=== PATIENT | female | born 1985 | race Caucasian/White ===

== ENCOUNTER → 2019-10-30 11:30 | Outpatient (BNVA) | payer OTHER, SELFPAY | PROVIDERS: Family Provider Internal Medicine; PCP Family Medicine; Visit Provider Urology | DX: E11.9 Type 2 diabetes mellitus without complications (principal) | CPT/HCPCS: 83036 ==

== ENCOUNTER → 2020-01-18 09:57 | Outpatient (BNVA) | payer OTHER, SELFPAY | PROVIDERS: Family Provider Internal Medicine; PCP Family Medicine Adult Medicine; Visit Provider Internal Medicine | DX: M54.6 Pain in thoracic spine (principal) | CPT/HCPCS: 72070 ==

== ENCOUNTER 2020-02-01 06:00 | Outpatient (RCR) | payer OTHER, SELFPAY | END 2020-03-01 23:59 | disposition home or self-care (01) | LOC: SPT 06:00 | PROVIDERS: PCP Family Medicine Adult Medicine; Referring Provider Internal Medicine; Visit Provider Internal Medicine | DX: M54.6 Pain in thoracic spine (principal) | CPT/HCPCS: 97110; 97161 ==

== ENCOUNTER → 2020-02-18 10:46 | Outpatient (BNVA) | payer OTHER, SELFPAY | PROVIDERS: PCP Family Medicine Adult Medicine; Referring Provider Family Medicine Adult Medicine; Visit Provider Internal Medicine | DX: E03.9 Hypothyroidism, unspecified (principal); E10.9 Type 1 diabetes mellitus without complications; Z96.41 Presence of insulin pump (external) (internal) | CPT/HCPCS: 99204 ==

== ENCOUNTER → 2020-04-17 08:12 | Outpatient (BNVA) | payer OTHER, SELFPAY | PROVIDERS: PCP Family Medicine Adult Medicine; Visit Provider Nurse Practitioner Family | DX: E10.9 Type 1 diabetes mellitus without complications (principal); E03.9 Hypothyroidism, unspecified | CPT/HCPCS: 80053; 83036; 84439 ==

== ENCOUNTER → 2020-04-19 11:30 | Outpatient (BNVA) | payer OTHER, SELFPAY | PROVIDERS: PCP Family Medicine Adult Medicine; Visit Provider Family Medicine | DX: U07.1 COVID-19 (principal) | CPT/HCPCS: 87635 ==

== ENCOUNTER → 2020-05-08 10:35 | Outpatient (BNVA) | payer OTHER, SELFPAY | PROVIDERS: PCP Family Medicine Adult Medicine; Visit Provider Nurse Practitioner Women's Health | DX: Z12.4 Encounter for screening for malignant neoplasm of cervix (principal); N91.5 Oligomenorrhea, unspecified | CPT/HCPCS: 88175 ==

== ENCOUNTER → 2020-07-04 10:14 | Outpatient (BNVA) | payer OTHER, SELFPAY | PROVIDERS: PCP Family Medicine Adult Medicine; Visit Provider Internal Medicine | DX: E03.9 Hypothyroidism, unspecified (principal); E10.9 Type 1 diabetes mellitus without complications; Z79.4 Long term (current) use of insulin; Z96.41 Presence of insulin pump (external) (internal) | CPT/HCPCS: 95251; 99214 ==

== ENCOUNTER 2020-07-09 12:51 | Emergency (ER) | payer OTHER, SELFPAY ==
[2020-07-09 12:57] VITALS: BP 126/97; PULSE 95; RESP 16; TEMP 36.4; O2SAT 99; BMI 22.1
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
[2020-07-09 14:18] LABS: HIV 1 & 2 Antibody Non-Reactive (Non-Reactiv); HIV 1 & 2 Antigen Non-Reactive (Non-Reactiv)
[2020-07-09 14:45] LABS: Hepatitis A Antibody IgM Non-Reactive (Nonreactive); Hepatitis B Core IgM Non-Reactive (Nonreactive); Hepatitis B Surface Antigen Non-Reactive (Nonreactive); Hepatitis C Virus Antibody Non-Reactive (Nonreactive)
== END 2020-07-09 13:34 | disposition home or self-care (01) ==
PROVIDERS: Emergency Provider Family Medicine; PCP Family Medicine Adult Medicine
DX: T14.8XXA Other injury of unspecified body region, initial encounter (principal); W46.0XXA Contact with hypodermic needle, initial encounter; Y99.0 Civilian activity done for income or pay; Z79.4 Long term (current) use of insulin; E10.9 Type 1 diabetes mellitus without complications; Z87.891 Personal history of nicotine dependence
CPT/HCPCS: 36415; 80074; 87806; 99282

== ENCOUNTER 2020-07-09 13:44 | Outpatient (CLI) | payer OTHER, SELFPAY ==
[2020-07-09 14:48] LABS: Estmated Average Glucose 246; Hemoglobin A1C 10.2 % (4.0-6.0)
== END 2020-07-09 13:45 | disposition home or self-care (01) ==
PROVIDERS: PCP Family Medicine Adult Medicine; Visit Provider Internal Medicine
DX: E10.9 Type 1 diabetes mellitus without complications (principal)
CPT/HCPCS: 83036

== ENCOUNTER 2020-08-29 10:23 | Emergency (ER) | payer OTHER, SELFPAY ==
[2020-08-29 10:32] VITALS: BP 146/82; PULSE 108; RESP 18; TEMP 36.9; O2SAT 99; BMI 22.1
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
[2020-08-29] MEDS: HYDROcodone-acetaminophen 5-325 mg Tablet 1 TAB PO (11:19)
[2020-08-29 11:56] VITALS: BP 134/65; PULSE 95; RESP 16; O2SAT 98
== END 2020-08-29 11:57 | disposition home or self-care (01) ==
PROVIDERS: Emergency Provider Family Medicine; PCP Family Medicine Adult Medicine
DX: M79.641 Pain in right hand (principal); S20.211A Contusion of right front wall of thorax, initial encounter; Z79.4 Long term (current) use of insulin; E10.9 Type 1 diabetes mellitus without complications; Y04.2XXA Assault by strike against or bumped into by another person, initial encounter; Y92.239 Unspecified place in hospital as the place of occurrence of the external cause; Y99.0 Civilian activity done for income or pay
CPT/HCPCS: 71100; 73130; 99283

== ENCOUNTER → 2021-05-12 12:36 | Outpatient (BNVA) | payer OTHER, SELFPAY | PROVIDERS: PCP Nurse Practitioner Family; Referring Provider Dermatology; Visit Provider Surgery | DX: Z11.52 Encounter for screening for COVID-19 (principal); K40.90 Unilateral inguinal hernia, without obstruction or gangrene, not specified as recurrent | CPT/HCPCS: 87635 ==

== ENCOUNTER 2021-05-14 08:55 | Day surgery (SDC) | payer OTHER, SELFPAY ==
[2021-05-14] VITALS (19 sets, daily range): BP systolic 93–117; BP diastolic 52–81; PULSE 82–108; RESP 7–19; TEMP 36.1–36.8; O2SAT 92–100; BMI 24.0
--- NOTE | 2021-05-14 08:10 | W.PM.OPSUD ---
Surgery/Procedure H&P Update DATE OF PROCEDURE: May 14, 2021 DATE H&P PERFORMED: 05/12/21 H&P UPDATE INFORMATION: I have reviewed H&P completed within last 30 days, I have examined patient prior to procedure and No changes to prior documentation PLANNED PROCEDURE: Operation Date: 05/14/21 10:00 Proposed Procedures p Laparoscopic poss Open Inguinal Hernia Repair [id number] K40.90(Not Applicable) - Thom Saha MD
[2021-05-14 09:58] LABS: OR HCG Qualitative Urine Negative (Negative)
[2021-05-14] MEDS: sodium chloride 0.9% 1,000 ML 30 ML IV (10:00)
--- NOTE | 2021-05-14 10:26 | ANES.PREANE2 ---
Pre-Anesthetic Assessment Pre-Anesthetic Assessment: Height/Weight: Height 1.6 m Weight 61.689 kg Temp Pulse Resp BP Pulse Ox 97.3 F L 97 16 117/81 98 05/14/21 09:25 05/14/21 09:25 05/14/21 09:25 05/14/21 09:25 05/14/21 09:25 Preop Diagnosis: right inguinal hernia Proposed Procedure: Operation Date: 05/14/21 10:00 Proposed Procedures p Laparoscopic poss Open Inguinal Hernia Repair [id number] K40.90(Not Applicable) - Thom Saha MD Familial anesthetic complications: None Was Beta Сергей taken within 24 hours: N/A Was Clonidine taken within 24 hours: N/A Last intake: Intake Last Liquid Date 05/13/21 Last Liquid Time 21:00 Last Solid Date 05/13/21 Last Solid Time 20:00 Social: Social History: No alcohol and No tobacco Exam: Pre-Anes Outpt Exam: alert, oriented x 3, clear to auscultation bilaterally and regular rate & rhythm Airway: Submandibular: WNL Cervical ROM: WNL MP: 1 Dentition: Full History/ROS: No significant complaints Pulmonary: Pulmonary: None reported CV/HEM: CV/HEM: None reported : : None reported Hepatic: Hepatic: None reported GI: Comments: Inguinal hernia repair Metabolic: Metabolic: DM (Well controlled w/ insulin pump) and Thyroid (Hypothyroid) Musc/skel: Musc/skel: None reported Neuropsych: Neuropsych: Anxiety Anesthetic Plan: ASA status: 2 Anesthesia: Anesthesia Evaluation and General Risk of > 500 ml blood loss (7ml/kg in children): No Other Pertinent Information: Plan to use patient's continuous glucose monitor for intra op monitoring of BG and administer insulin as needed. Medications/Allergies Current Medications: Current Medications Generic Name Dose Route Start Last Admin Trade Name Freq PRN Reason Stop Dose Admin Sodium Chloride 1,000 mls @ 30 ml s/hr 05/14/21 09:15 05/14/21 10:00 Sodium Chloride 0.9% IV 05/15/21 09:14 30 mls/hr .Q24H ANA Administration PFSH Anesthesia PFSH: Medical History Angio-edema JOSE (generalized anxiety disorder) Hypothyroidism, unspecified Recurrent herpes labialis Type 1 diabetes mellitus without complications Surgical History H/O wisdom tooth extraction History of tonsillectomy Family History Denies family history of Colon cancer Ovarian cancer Diabetes Heart disease Hypercholesteremia Breast cancer Hypertension Uterine cancer Thyroid disease Stroke Social History Smoking and tobacco status: never smoked Additional social history: - Tobacco use: Former quit in 2011 Alcohol use: socially-- once per week Drug use: denies Female Reproductive History: Date of last menstrual period: 05/04/21 Data Anesthesia Other Labs: Laboratory Results - last 48 hr 05/14/21 09:57 Urine HCG, Qual Negative Cardiac Studies: No Data to Display
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
[2021-05-14] MEDS: HYDROmorphone 1 mg/mL INJ 1 mL 0.5 MG IVP ×2 (12:21→12:39)
[2021-05-14] MEDS: sodium chloride 0.9% 1,000 ML 30 ML (12:39)
[2021-05-14] MEDS: fentaNYL 50 mcg/mL INJ 2mL IVP (13:00)
[2021-05-14] MEDS: HYDROcodone-acetaminophen 5-325 mg Tablet 1 TAB PO (13:45)
[2021-05-14] MEDS: ondansetron 2 mg/ML SDV 2 mL 4 MG IVP (14:00)
--- NOTE | 2021-05-14 14:30 | ANE.PACU2 ---
Inpatient post-anesthesia follow up: Airway intact: Yes Vital signs: Temperature 97 F Pulse Rate 89 Respiratory Rate 16 Blood Pressure 101/52 Pulse Oximetry 98 Oxygen Delivery Me thod Room Air Oxygen Flow Rate 6 Fraction of Inspir ed Oxygen Hydration adequate: Yes Nausea and vomiting: No Pain level: 4 Mental status: Baseline
--- NOTE | 2021-05-14 14:39 | PC.NURSE ---
1400- scant amt. blood droplets at umbilical surgical site noted. 4x4 gauze folded over and placed in umbilicus covered by dermabond.
== END 2021-05-14 14:20 | disposition home or self-care (01) ==
PROVIDERS: Anesthesiology; PCP Internal Medicine; Visit Provider Surgery
PROC: (CPT 49650; principal; 2021-05-14 10:00)
DX: K40.30 Unilateral inguinal hernia, with obstruction, without gangrene, not specified as recurrent (principal); E10.9 Type 1 diabetes mellitus without complications; E03.9 Hypothyroidism, unspecified; Z79.4 Long term (current) use of insulin; F41.9 Anxiety disorder, unspecified; Z87.891 Personal history of nicotine dependence
CPT/HCPCS: 49650; 81025; 84703; 96374; C1781; J0690; J1100; J1170; J1885; J2405; J2704; J3010; J3490; J7030

== ENCOUNTER 2022-11-03 07:06 | Outpatient (CLI) | payer OTHER, SELFPAY ==
[2022-11-03 07:36] LABS: Basophils # 0.1 10^3/uL (0.0-0.1); Basophils % 1.3 %; Hematocrit 41.4 % (37.0-47.0); Hemoglobin 13.6 g/dL (11.5-15.3); Lymphocytes # 2.3 10^3/uL (0.8-4.8); Lymphocytes % 30.3 %; Mean Corpuscular HGB Conc 32.9 g/dL (30.0-36.0); Mean Corpuscular Hemoglobin 29.4 pg (28.0-34.0); Mean Corpuscular Volume 89.4 fl (81-99); Mean Platelet Volume 9.9 fL (7.4-10.4); Monocytes # 0.7 10^3/uL (0.2-0.9); Monocytes % 9.1 %; Neutrophils # 4.47 10^3/uL (1.8-7.7); Neutrophils % 59.2 %; Nucleated Red Blood Cells % 0 %; Platelet Count 336 10^3/cmm (130-400); Red Blood Count 4.63 10^6/uL (4.1-5.3); Red Cell Distribution Width 12.7 % (12.1-15.1); White Blood Count 7.6 10^3/uL (4.0-10.0)
[2022-11-03 07:57] LABS: Alanine Aminotransferase 11 U/L (0-33); Albumin Level 3.9 g/dL (3.5-5.2); Alkaline Phosphatase 59 U/L (35-105); Anion Gap 13.6 (5-19); Aspartate Amino Transferase 19 U/L (0-32); Blood Urea Nitrogen 8 mg/dL (6-20); Carbon Dioxide 24 mmol/L (22-29); Chloride 101 mmol/L (98-107); Chol HDL Ratio 3.54 mg/dL (0.0-4.40); Cholesterol 283 mg/dL (0-200); Free T4 Free Thyroxine 1.32 ng/dL (0.82-1.77); Glomerular Filtration Rate 113.8 mL/min (90-130); Glucose 151 mg/dL (65-115); HDL Cholesterol 80 mg/dL (60-100); LDL Cholesterol Calculated 191 mg/dL (50-129); LDL HDL Ratio 2.39 RATIO (0.00-3.22); Osmolality Calculated 281 mOsm/kg (285-295); Potassium 3.6 mmol/L (3.5-5.1); Sodium 135 mmol/L (136-145); Thyroid Stimulating Hormone 2.39 uIU/mL (0.27-4.20); Total Bilirubin 0.3 mg/dL (0.15-1.2); Total Protein 6.9 g/dL (6.6-8.7); Triglycerides 62 mg/dL (0-150)
[2022-11-03 08:44] LABS: Estmated Average Glucose 192; Hemoglobin A1C 8.3 % (4.0-6.0)
== END 2022-11-03 07:07 | disposition home or self-care (01) ==
PROVIDERS: PCP Internal Medicine; Visit Provider Internal Medicine
DX: E03.9 Hypothyroidism, unspecified (principal); E10.9 Type 1 diabetes mellitus without complications
CPT/HCPCS: 36415; 80053; 80061; 83036; 84439; 84443; 85025